=== PATIENT | male | born 1985 | race Two or more races ===

== ENCOUNTER 2021-10-23 23:46 | Emergency (ER) | payer OTHER ==
[~2021-10-23] VITALS: Ht 170.2 cm; Wt 72.7 kg
[2021-10-24 00:07] VITALS: BP 131/87
[2021-10-24] MEDS ORDERED: TRAM-48 PO (00:50)
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
== END 2021-10-24 01:00 | disposition home or self-care (01) ==
LOC: ER 23:46
DX: M25.562 Pain in left knee (principal); F17.200 Nicotine dependence, unspecified, uncomplicated; V43.52XA Car driver injured in collision with other type car in traffic accident, initial encounter; Y93.I9 Activity, other involving external motion; Y92.89 Other specified places as the place of occurrence of the external cause; Y99.8 Other external cause status
CPT/HCPCS: 73562; 99283